=== PATIENT | male | born 1970 | race Caucasian/White ===

== ENCOUNTER 2021-07-01 05:44 | Inpatient (IN) ==
[2021-07-01] MEDS ORDERED: VANCOMYCIN INJ 1,000 MG in SODIUM CHLORIDE 0.9% 250 ML IV ONE (06:00)
[2021-07-01] MEDS ORDERED: GABAPENTIN 400 MG CAPSULE PO ONE (06:00)
[2021-07-01] MEDS ORDERED: ACETAMINOPHEN 500 MG TABLET PO ONE (06:00)
[2021-07-01] MEDS ORDERED: DIAZEPAM 5 MG TABLET PO ONE (06:00)
[2021-07-01] MEDS ORDERED: FAMOTIDINE 20 MG TABLET PO ONE (06:00)
[2021-07-01] MEDS ORDERED: ONDANSETRON 4 MG/2 ML VIAL ONE (06:55)
[2021-07-01] MEDS ORDERED: KETAMINE 500 MG/10 ML VIAL ONE (06:55)
[2021-07-01] MEDS ORDERED: propofoL 200 MG/20 ML VIAL IV ONE ×2 (06:55→09:00)
[2021-07-01] MEDS ORDERED: fentaNYL 100 MCG/2 ML VIAL ONE (06:55)
[2021-07-01] MEDS ORDERED: MIDAZOLAM 2 MG/2 ML VIAL ONE ×2 (06:55→07:51)
[2021-07-01] MEDS ORDERED: LIDOCAINE 2% 5 ML VIAL ONE (06:55)
[2021-07-01] MEDS ORDERED: SODIUM CHLORIDE 0.9% 100 ML IV ONE ×2 (06:56→09:00)
[2021-07-01] MEDS ORDERED: LIDOCAINE 1% 5 ML VIAL ONE (07:12)
[2021-07-01] MEDS ORDERED: DEXAMETHASONE 4 MG/1 ML VIAL ONE (07:12)
[2021-07-01] MEDS ORDERED: ROPIVACAINE 0.5% 30 ML VIAL ONE ×2 (07:12)
[2021-07-01] MEDS ORDERED: BUPIVACAINE SPINAL 0.75% 2 ML AMP SPINAL ONE (07:21)
[2021-07-01] MEDS ORDERED: VANCOMYCIN 1,000 MG VIAL ONE (07:32)
[2021-07-01] MEDS: LACTATED RINGERS 1,000 ML IV SCH ×2 (07:33→10:20)
[2021-07-01] MEDS ORDERED: ceFAZolin 1,000 MG VIAL ONE (07:33)
[2021-07-01] MEDS ORDERED: TRANEXAMIC ACID 1,000 MG/10 ML VIAL ONE (08:41)
[2021-07-01] MEDS ORDERED: PHENYLEPHRINE 1 MG/10 ML SYRINGE IV ONE ×2 (08:51→09:32)
[2021-07-01 10:10] LABS: Bilirubin,Urine Negative (Negative); Blood, Urine Negative (Negative); Glucose,Urine (UA) >=500 mg/dL (Negative); Ketones,Urine 5 mg/dL (Negative); Mucus,Urine Occasional /LPF (Occasional); Nitrite,Urine Negative (Negative); Protein,Urine Negative; RBC,Urine <1 /HPF (0-4); Squamous Epithelial Cell,Urine Occasional /HPF (0-10); Urine Appearance CLEAR (Clear); Urine Color Yellow (Yellow); Urine Specific Gravity 1.028 (1.001-1.035)
[2021-07-01] MEDS ORDERED: LACTATED RINGERS 1,000 ML IV ONE (10:14)
[2021-07-01] MEDS ORDERED: diphenhydrAMINE CAP 25 MG CAPSULE PO PRN (10:15)
[2021-07-01] MEDS ORDERED: BISACODYL 10 MG SUPP RECTAL PRN (10:15)
[2021-07-01] MEDS ORDERED: LACTULOSE 20 GM/30 ML UDCUP PO PRN (10:15)
[2021-07-01] MEDS ORDERED: PROMETHAZINE 25 MG/1 ML VIAL IM PRN (10:15)
[2021-07-01] MEDS ORDERED: MORPHINE 2 MG/1 ML SYRINGE IV PRN (10:15)
[2021-07-01] MEDS ORDERED: diphenhydrAMINE 50 MG/1 ML VIAL ONE (10:30)
[2021-07-01] MEDS ORDERED: INFLUENZA VIRUS VACCINE 0.5 ML SYRINGE IM ONE (19:04)
[2021-07-01] MEDS: ceFAZolin 2,000 MG/50 ML DUPLEX IV SCH (20:46)
[2021-07-01] MEDS: ATORVASTATIN 10 MG TABLET PO SCH (20:47)
[2021-07-01] MEDS: metFORMIN 500 MG TABLET PO SCH (20:47)
[2021-07-01] MEDS: LISINOPRIL/HCTZ 20-12.5 MG TABLET PO SCH (20:47)
[2021-07-01] MEDS: FONDAPARINUX 2.5 MG/0.5 ML SYRINGE SUBCUT SCH (20:47)
[2021-07-01] MEDS: DOCUSATE SODIUM 100 MG CAPSULE PO SCH (20:47)
[2021-07-01] MEDS: TEMAZEPAM 7.5 MG CAPSULE PO PRN (20:48)
[2021-07-01] MEDS: glyBURIDE 5 MG TABLET PO SCH (20:48)
[2021-07-02] MEDS: ceFAZolin 2,000 MG/50 ML DUPLEX IV SCH (05:05)
[2021-07-02 07:00] LABS: Basophils # 0.1 10*3/uL (0.0-0.2); Basophils % 0.6 % (0.0-0.8); Eosinophils # 0.1 10*3/uL (0.0-0.87); Eosinophils % 0.9 % (0.00-10.9); Hematocrit 39.6 VOL% (42.0-52.0); Hemoglobin 13.3 GM/DL (14.0-18.0); Immature Granulocytes % 0.5 %; Immature Granulocytes Absolute 0.04 #; Lymphocytes # 1.5 10*3/uL (1.4-4.0); Lymphocytes % 16.5 % (21.2-54.2); Mean Corpuscular HGB Conc 33.6 GM/DL (32-36); Mean Corpuscular Volume 89.4 FL (87-102); Mean Platelet Volume 10.6 FL (9.6-12.0); Monocytes % 10.4 % (1.7-12.7); Neutrophils % 71.1 % (38.7-73.9); Platelet Count 174 T/CUMM (130-400); Red Blood Count 4.43 MC/CUMM (3.8-5.5); Red Cell Distribution Width 12.5 % (9.3-17.3); White Blood Count 8.8 T/CUMM (4-12)
[2021-07-02 07:30] LABS: Calcium 8.7 MG/DL (8.5-10.1); Osmolality,Calculated 271.2 MOS/KG (273-304); Potassium 4.3 MMOL/L (3.5-5.1)
[2021-07-02] MEDS: amLODIPine 5 MG TABLET PO SCH (08:32)
[2021-07-02] MEDS: METOPROLOL SUCCINATE XL 100 MG TABLET PO SCH (08:32)
[2021-07-02] MEDS: DAPAGLIFLOZIN 10 MG TABLET PO SCH (08:32)
[2021-07-02] MEDS: LISINOPRIL/HCTZ 20-12.5 MG TABLET PO SCH ×2 (08:33→21:03)
[2021-07-02] MEDS: metFORMIN 500 MG TABLET PO SCH ×2 (08:33→16:35)
[2021-07-02] MEDS: glyBURIDE 5 MG TABLET PO SCH ×2 (08:33→16:36)
[2021-07-02] MEDS: DOCUSATE SODIUM 100 MG CAPSULE PO SCH ×2 (08:33→21:03)
[2021-07-02] MEDS: ONDANSETRON 4 MG/2 ML VIAL IV PRN (15:35)
[2021-07-02] MEDS: MAGNESIUM HYDROXIDE SUSP 30 ML UDCUP PO PRN (15:50)
[2021-07-02] MEDS: FONDAPARINUX 2.5 MG/0.5 ML SYRINGE SUBCUT SCH (21:00)
[2021-07-02] MEDS: TEMAZEPAM 7.5 MG CAPSULE PO PRN (21:03)
[2021-07-02] MEDS: ATORVASTATIN 10 MG TABLET PO SCH (21:03)
[2021-07-03] MEDS: MAGNESIUM HYDROXIDE SUSP 30 ML UDCUP PO PRN (05:33)
[2021-07-03] MEDS: ONDANSETRON 4 MG/2 ML VIAL IV PRN (05:36)
[2021-07-03] MEDS ORDERED: SIMETHICONE CHEW 80 MG TABLET PO PRN (08:03)
[2021-07-03] MEDS: glyBURIDE 5 MG TABLET PO SCH ×2 (08:46→17:35)
[2021-07-03] MEDS: DAPAGLIFLOZIN 10 MG TABLET PO SCH (08:47)
[2021-07-03] MEDS: PANTOPRAZOLE 40 MG TABLET PO SCH (08:47)
[2021-07-03] MEDS: METOPROLOL SUCCINATE XL 100 MG TABLET PO SCH (08:47)
[2021-07-03] MEDS: amLODIPine 5 MG TABLET PO SCH (08:47)
[2021-07-03] MEDS: DOCUSATE SODIUM 100 MG CAPSULE PO SCH ×2 (08:47→20:10)
[2021-07-03] MEDS: metFORMIN 500 MG TABLET PO SCH ×2 (08:47→17:35)
[2021-07-03] MEDS: LISINOPRIL/HCTZ 20-12.5 MG TABLET PO SCH ×2 (08:47→20:10)
[2021-07-03] MEDS: FONDAPARINUX 2.5 MG/0.5 ML SYRINGE SUBCUT SCH (20:10)
[2021-07-03] MEDS: ATORVASTATIN 10 MG TABLET PO SCH (20:10)
[2021-07-04] MEDS: metFORMIN 500 MG TABLET PO SCH (08:30)
[2021-07-04] MEDS: glyBURIDE 5 MG TABLET PO SCH (08:30)
[2021-07-04] MEDS: DAPAGLIFLOZIN 10 MG TABLET PO SCH (08:30)
[2021-07-04] MEDS: PANTOPRAZOLE 40 MG TABLET PO SCH (08:30)
[2021-07-04] MEDS: DOCUSATE SODIUM 100 MG CAPSULE PO SCH (08:30)
[2021-07-04] MEDS: METOPROLOL SUCCINATE XL 100 MG TABLET PO SCH (08:31)
[2021-07-04] MEDS: LISINOPRIL/HCTZ 20-12.5 MG TABLET PO SCH (08:31)
[2021-07-04] MEDS: amLODIPine 5 MG TABLET PO SCH (08:31)
[2021-07-04 11:23] VITALS: BP 109/75
[2021-07-07] MEDS ORDERED: Semaglutide [Ozempic] 0.25 mg or 0.5 mg(2 mg/1.5 mL) Pen Injecto SUBCUT SCH (10:18)
== END 2021-07-04 13:35 | disposition home health service (06) | DRG 470 ==
LOC: N.OR 05:44 → N.SDSINP 05:54 → EDSTATUS 10:00 → N.SDSINP 10:16 → N.3E 18:22
PROVIDERS: ADMIT Orthopaedic Surgery; ATTEND Orthopaedic Surgery